=== PATIENT | female | born 1980 | race African-American/Black ===

== ENCOUNTER 2017-06-21 10:28 | Emergency (ER) | payer OTHER ==
[~2017-06-21] VITALS: Ht 162.6 cm; Wt 122.0 kg
[2017-06-21 11:12] LABS: INFLUENZA A ANTIGEN None Detected (None Detect)
[2017-06-21] MEDS ORDERED: TESSALON PERLE100 MG PO (11:15)
[2017-06-21] MEDS ORDERED: PROAIR HFA8.5 GM INH (11:15)
[2017-06-21 11:36] VITALS: BP 118/73
== END 2017-06-21 11:37 | disposition home or self-care (01) ==
LOC: M.ERS 10:28
PROVIDERS: Nurse Practitioner Family
DX: J11.1 Influenza due to unidentified influenza virus with other respiratory manifestations (principal)